=== PATIENT | female | born 1970 | race Caucasian/White ===

== ENCOUNTER 2020-05-15 11:16 | Outpatient (CLI) | payer OTHER, SELFPAY ==
--- NOTE | ~2020-05-15 | MM_ITS ---
EXAMINATION: MM screening aleks BI w summer HISTORY: Screening mammogram TECHNIQUE: Craniocaudal and mediolateral oblique 3-D tomosynthesis images were obtained and synthetic 2-D images were generated. CAD analysis was submitted and interpreted. COMPARISON: No prior mammogram is available for comparison at this institution. BREAST PARENCHYMAL COMPOSITION: The breasts are almost entirely fatty. FINDINGS: There is no evidence of suspicious mass, calcification, or architectural distortion to sugg est malignancy in either breast. There has been no suspicious interval change. IMPRESSION: 1. No mammographic evidence of malignancy. 2. Recommend routine screening mammography in one year. BI-RADS Category 1: Negative Reviewed, dictated and finalized at location A.
== END 2020-05-15 11:17 | disposition home or self-care (01) ==
PROVIDERS: PCP Physician Assistant; Visit Provider Obstetrics & Gynecology
DX: Z12.31 Encounter for screening mammogram for malignant neoplasm of breast (principal)
CPT/HCPCS: 77063; 77067

== ENCOUNTER 2023-08-02 00:56 | Day surgery (SDC) | payer OTHER, SELFPAY ==
[2023-07-18 14:29] VITALS: BMI 32.0
[2023-08-02 08:05] VITALS: BP 112/65; PULSE 67; RESP 16; TEMP 36.3; O2SAT 99
[2023-08-02] MEDS: LACTATED RINGERS 1,000 ML 150 ML IV CONT (08:07)
--- NOTE | 2023-08-02 08:34 | WPDANESEPPF ---
Anes - Initial Pre Proc Eval Procedure: Operation Date: 08/02/23 09:30 Proposed Procedures p Colonoscopy - Morro Lott MD Date/Time: 08/02/23 08:34 Surgeon: Morro Lott MD Pre Op Diagnosis: family hx colon ca Patient Data Age: 52 Gender: F Height: 1.68 m Weight: 89.5 kg Last Vital Signs Temp 36.3 C L 08/02/23 08:05 Pulse 67 08/02/23 08:05 Resp 16 08/02/23 08:05 BP 112/65 08/02/23 08:05 Pulse Ox 99 08/02/23 08:05 O2 Del Method Room Air 08/02/23 08:05 Allergies Allergy/AdvReac Type Severity Reaction Status Date / Time estradiol AdvReac Severe Swelling Verified 08/02/23 08:03 Home Medications Medication Instructions Recorded Confirmed Type tirzepatide 2.5 mg/0.5 mL 2.5 mg subcut WEEKLY 07/18/23 08/02/23 History subcutaneous pen injector Patient hx anesthesia problems: none Family hx anesthesia problems: none Results Review: All pre-operative results and documents have been reviewed as part of the pre-operative evaluation. [facility] Past Medical History Medical History Allergic rhinitis BMI 37.0-37.9, adult HLD (hyperlipidemia) Tobacco abuse Surgical History Surgical History History of total left hip replacement History of total right hip replacement History of tubal ligation Family History Family History Father Malignant neoplasm of prostate Heart disease Localized cancer of lip, oral cavity and throat Mother Carcinoma of colon Grandparent Cerebrovascular accident Social History Social History (Updated 08/02/23 @ 08:37 by Arsen Monreal MD) Smoking packs per day: 0.5 Smoking cigarettes per day: 10.0 Years smoked: 30 Smoking pack-years: 15.00 Smoking status: Former smoker Tobacco type: cigarettes Second hand tobacco smoke exposure: No Alcohol intake: current Drinks per week: 3 Substance use: never Substance use type: does not use Lack of Transportation: No Lack of Food: Never True Current Housing: I Have Housing Concerned About Future Housing: No Difficulty Paying Gas/Electric Bills: No Difficulty Paying for Meds: No Currently Unemployed: No Education: Trade/Vocational Certificate Difficulty w/ Childcare or Family Care: No Living arrangements: with family Gender identity (if verbalized by the patient): Female Spiritual care concerns: No Agree to blood products: Yes Anes - Eval Final PreProcedure Day of Procedure 08/02/23 08:34 Patient weight: obese Heart: regular rate and rhythm Lungs: clear to auscultation Airway: Mallampati scale class II Neurological: alert and oriented Last oral intake: >/= 8 hours ASA classification: III Emergent: no Anesthetic plan: proceed Anesthesia type and monitoring: general GIVS and standard monitoring Results Review: All pre-operative results and documents have been reviewed as part of the pre-operative evaluation. Informed Consent: The patient's anesthetic plan and its attendant risks and benefits were discussed with the patient/family/POA. Questions were solicited and answers provided to the satisfaction of the patient/family/POA.
--- NOTE | 2023-08-02 08:42 | PM.HPGS ---
History of Present Illness History of Present Illness Consent: Risks, benefits, and alternatives have been discussed and questions answered. Patient agrees to proceed with procedure. Chief complaint: family hx colon ca Narrative: Tatyana Katz is a 52 year old female Presents for screening colonoscopy. Patient reports that her current weight appetite and bowel movements are normal. Patient denies abdominal pain. She has had no bleeding. Family history is significant both her mother and aunt have had colon cancer Review of Systems Review of Systems: review of systems noncontributory. [facility] Past Medical History Medical History Allergic rhinitis BMI 37.0-37.9, adult HLD (hyperlipidemia) Tobacco abuse Surgical History Surgical History History of total left hip replacement History of total right hip replacement History of tubal ligation Family History Family History Father Malignant neoplasm of prostate Heart disease Localized cancer of lip, oral cavity and throat Mother Carcinoma of colon Grandparent Cerebrovascular accident Social History Social History (Updated 08/02/23 @ 08:37 by Arsen Monreal MD) Smoking packs per day: 0.5 Smoking cigarettes per day: 10.0 Years smoked: 30 Smoking pack-years: 15.00 Smoking status: Former smoker Tobacco type: cigarettes Second hand tobacco smoke exposure: No Alcohol intake: current Drinks per week: 3 Substance use: never Substance use type: does not use Lack of Transportation: No Lack of Food: Never True Current Housing: I Have Housing Concerned About Future Housing: No Difficulty Paying Gas/Electric Bills: No Difficulty Paying for Meds: No Currently Unemployed: No Education: Trade/Vocational Certificate Difficulty w/ Childcare or Family Care: No Living arrangements: with family Gender identity (if verbalized by the patient): Female Spiritual care concerns: No Agree to blood products: Yes Meds Home Medications and Allergies Home Medications Medication Instructions Recorded Confirmed Type tirzepatide 2.5 mg/0.5 mL 2.5 mg subcut WEEKLY 07/18/23 08/02/23 History subcutaneous pen injector Allergies Allergy/AdvReac Type Severity Reaction Status Date / Time estradiol AdvReac Severe Swelling Verified 08/02/23 08:03 Vital Signs Vital Signs - 24 hr 08/02/23 08:05 Temperature 97.3 F L Pulse Rate 67 Respiratory Rate 16 Blood Pressure 112/65 Pulse Oximetry 99 Oxygen Delivery Room Air Exam Narrative: Physical exam reveals patient to be alert. Vital signs stable. HEENT exam is unremarkable. Patient is anicteric. Lungs are clear to auscultation and percussion. Heart is without murmur or extra sounds. Abdomen bowel sounds are present soft nontender with no organomegaly. Digital external rectal exam normal. Assessment and Plan Assessment and plan (1) Family history of colon cancer in mother: Code(s): Z80.0 - Family history of malignant neoplasm of digestive organs Status: Acute Assessment and Plan: Patient has a family history of colon cancer in her both her mother and her maternal aunt. Plan for surveillance colonoscopy now and consider this at 5 year intervals in the future.
[2023-08-02 09:33] VITALS: BP 117/97; PULSE 83; RESP 20; O2SAT 97
[2023-08-02 09:43] VITALS: BP 105/65; PULSE 78; RESP 18; O2SAT 98
[2023-08-02 09:53] VITALS: BP 113/74; PULSE 80; RESP 18; O2SAT 98
== END 2023-08-02 09:58 | disposition home or self-care (01) ==
PROVIDERS: PCP Family Medicine; Visit Provider Internal Medicine Gastroenterology
PROC: 0DJD8ZZ Inspection of Lower Intestinal Tract, Via Natural or Artificial Opening Endoscopic (ICD-10-PCS; CPT 45378; principal; 2023-08-02 09:30)
DX: Z12.11 Encounter for screening for malignant neoplasm of colon (principal); D12.3 Benign neoplasm of transverse colon; E78.5 Hyperlipidemia, unspecified; Z80.0 Family history of malignant neoplasm of digestive organs; Z87.891 Personal history of nicotine dependence; E66.9 Obesity, unspecified; Z68.31 Body mass index [BMI] 31.0-31.9, adult
CPT/HCPCS: 45385; 88305; J2704; J7120